=== PATIENT | female | born 1965 | race Caucasian/White ===

== ENCOUNTER 2022-08-20 21:08 | Inpatient (IN) ==
[2022-08-20] MEDS ORDERED: hydrALAZINE HCL 20 MG/ML VIAL IV STA ×2 (21:31→23:21)
[2022-08-20] MEDS ORDERED: ONDANSETRON INJ 2 MG/ML 2 ML VIAL IV STA (21:46)
--- NOTE | 2022-08-20 21:46 | Emergency Department Note ---
History of Present Illness General Chief complaint: Hypertension Stated complaint: DIZZINESS, NAUSEA, BLOOD PRESSURE HIGH Time Seen by Provider: 08/20/22 21:22 History of Present Illness This 56-year-old female presents to the ER complaining of headache, dizziness, nausea chest discomfort and shortness of breath today his blood pressure was 230/90 at home. Patient states she feels weak and dizzy. No history of high blood pressure. She does not smoke. Legs are chronically swollen. She is noncompliant with her Lasix. Patient denies fever, chills, localized weakness, cough, congestion, abdominal pain. Home Medications Medication Instructions Recorded Confirmed Type albuterol sulfate 2.5 mg/3 mL 2.5 mg continuous nebulization Q4 08/20/22 08/20/22 History (0.083 %) solution for nebulization PRN Shortness Of Breath Or Wheezing albuterol sulfate 90 mcg/actuation 2 puff inhalation Q4 PRN 08/20/22 08/20/22 History aerosol inhaler cough,SOB,wheezing budesonide-formoterol HFA 160 2 puff inhalation BID PRN 08/20/22 08/20/22 History mcg-4.5 mcg/actuation aerosol Shortness Of Breath inhaler (Symbicort) cyclobenzaprine 10 mg tablet 10 mg PO HS 08/20/22 08/21/22 History fluticasone propionate 50 2 spray intranasal DAILY PRN 08/20/22 08/20/22 History mcg/actuation nasal Congestion spray,suspension furosemide 20 mg tablet 20 mg PO DAILY 08/20/22 08/20/22 History hydrocodone-homatropine 5 mg-1.5 5 - 10 ml PO HS PRN Cough 08/20/22 08/20/22 History mg/5 mL oral syrup ipratropium 20 mcg-albuterol 100 1 puff inhalation QID 08/20/22 08/21/22 History mcg/actuation mist for inhalation (Combivent Respimat) meclizine 25 mg tablet 25 mg PO TID PRN Dizziness 08/20/22 08/20/22 History omeprazole 20 mg capsule,delayed 20 mg PO DAILYBB 08/20/22 08/21/22 History release potassium chloride 10 mEq 10 meq PO DAILY 08/20/22 08/21/22 History capsule,extended release promethazine 25 mg tablet 25 mg PO Q4 PRN Nausea 08/20/22 08/20/22 History montelukast 10 mg tablet 10 mg PO HS 08/21/22 08/21/22 History ondansetron HCl 4 mg tablet 4 mg PO Q8H PRN Nausea 08/21/22 08/21/22 History Allergies Allergy/AdvReac Type Severity Reaction Status Date / Time clarithromycin Allergy Severe hives and Verified 08/21/22 00:32 extreme vomiting doxycycline Allergy Severe swelling Verified 08/21/22 00:32 and thrush Penicillins Allergy Unknown hives,swell Verified 08/21/22 00:32 ing ampicillin Allergy VOMIT, RASH Verified 08/21/22 00:30 aspirin AdvReac SENSITIVITY-GI Verified 08/21/22 00:30 UPSET, NOSEBLEED Past Med/Surg History Medical History (Updated 08/21/22 @ 01:39 by Cam Olivares DO) Asthma GERD (gastroesophageal reflux disease) Lymphedema BERNABE (obstructive sleep apnea) Vertigo Social History Smoking Status: Never smoker Preferred Language: Maori Feels Safe at Home: Yes Review of Systems A total of 10 systems reviewed and were otherwise negative Physical Exam Vital Signs Vital Signs - 24 hr 08/20/22 21:12 08/20/22 23:03 08/20/22 22:49 Temperature 36.3 C L Temperature Source Temporal Artery Scan Pulse Rate 74 Pulse Rate [Apical] 80 Pulse Rate from SpO2 Sensor Respiratory Rate 20 18 Respiratory Effort / Characteristics Non-Labored Spontaneous Respiratory Depth Normal Blood Pressure 202/113 H 168/77 H Blood Pressure [Left Arm] 181/86 H Blood Pressure Mean 142 107 Blood Pressure Mean [Left Arm] 117 Pulse Oximetry 100 100 Oxygen Delivery Method Room Air Room Air Sepsis Recent Fever Within 48 Hours No Sepsis New/Unexplained Change in Mental Status No Sepsis Action Taken by Nursing No Action Required 08/20/22 23:03 08/20/22 23:24 08/20/22 23:40 Temperature Temperature Source Pulse Rate 84 85 76 Pulse Rate [Apical] Pulse Rate from SpO2 Sensor 84 Respiratory Rate 18 18 18 Respiratory Effort / Characteristics Respiratory Depth Blood Pressure 181/86 H 159/80 H 158/82 H Blood Pressure [Left Arm] Blood Pressure Mean 117 106 107 Blood Pressure Mean [Left Arm] Pulse Oximetry 100 100 100 Oxygen Delivery Method Sepsis Recent Fever Within 48 Hours Sepsis New/Unexplained Change in Mental Status Sepsis Action Taken by Nursing 08/21/22 00:00 Temperature Temperature Source Pulse Rate 81 Pulse Rate [Apical] Pulse Rate from SpO2 Sensor Respiratory Rate 18 Respiratory Effort / Characteristics Respiratory Depth Blood Pressure 169/95 H Blood Pressure [Left Arm] Blood Pressure Mean 119 Blood Pressure Mean [Left Arm] Pulse Oximetry 100 Oxygen Delivery Method Sepsis Recent Fever Within 48 Hours Sepsis New/Unexplained Change in Mental Status Sepsis Action Taken by Nursing VITALS: Vitals are noted on the nurse's note and reviewed by myself. Vital signs hypertensive. GENERAL: Pleasant female, in no acute distress, nondiaphoretic, well-developed well-nourished. SKIN: The skin was without rashes, erythema, edema, or bruising. There is no tenting of the skin. Capillary reflex less than 2 seconds. HEAD: Normocephalic atraumatic. EARS: External auditory canals clear, tympanic membranes pearly victoria without erythema or effusion bilaterally. EYES: Pupils equal round and reactive to light and accommodation. Conjunctivae without injection, sclerae without icterus. Extraocular movements intact. NOSE: Patent, turbinates without inflammation or discharge. MOUTH: Mucous membranes moist. Pharynx without erythema or exudate. Uvula midline. Airway patent. Tongue does not deviate. NECK: Supple without nuchal rigidity. No lymphadenopathy. No thyromegaly. Cervical spine is nontender. No JVD. HEART: Regular rate and rhythm LUNGS: Clear to auscultation bilaterally without wheezes, rales or rhonchi. No retractions or accessory muscle use. ABDOMEN: Positive bowel sounds x 4. Normal tympanic percussion. Soft, no ntender, without masses or organomegaly. Uribe sign negative. No guarding or rebound tenderness. No CVA tenderness MUSCULOSKELETAL: No muscle atrophy, erythema, or edema noted. NEURO: Patient was alert and oriented to person place and time. Normal sensation to light and sharp touch. Cranial nerves II through XII grossly intact. No pronator drift. Cerebellar exam intact. No focal neurological deficits. Course Administered Medications Discontinued Medications Hydralazine HCl (Hydralazine Hcl 20 Mg/Ml Vial) 10 mg IV NOW STA Stop: 08/20/22 21:32 Last Admin: 08/20/22 22:24 Dose: 10 mg Documented By: ML Hydralazine HCl (Hydralazine Hcl 20 Mg/Ml Vial) 10 mg IV NOW STA Stop: 08/20/22 23:22 Last Admin: 08/20/22 23:46 Dose: Not Given Documented By: ANDER Ioversol (Optiray 320 500ml) 109 ml IV ONCE ONE Stop: 08/20/22 22:35 Last Admin: 08/20/22 22:35 Dose: 109 ml Documented By: DERICK Ondansetron HCl (Ondansetron Inj 2 Mg/Ml 2 Ml Vial) 4 mg IV NOW STA Stop: 08/20/22 21:47 Last Admin: 08/20/22 22:23 Dose: 4 mg Documented By: ANTONINO Medical Decision Making Medical Records Attestation: I reviewed the patient's medical records. Home Medications Current Medication List: was personally reviewed by me Laboratory Data Attestation: I reviewed the patient's lab results. 08/20/22 22:11 08/20/22 22:11 Lab Results 08/20/22 08/20/22 08/20/22 Range/Units 22:11 22:11 22:11 WBC 8.52 (4.8-10.8) K/ul RBC 4.95 (4.20-5.40) M/uL Hgb 14.0 (12.0-16.0) g/dl Hct 43.5 (37.0-47.0) % MCV 87.9 (80.0-100.0) fL MCH 28.3 (25.0-34.0) pg MCHC 32.2 (32.0-36.0) g/dL RDW Std Deviation 44.4 (36.4-46.3) fL RDW Coeff of Jessie 13.7 (11.5-14.5) % Plt Count 285 (130-400) K/uL MPV 9.9 (9.4-12.4) fL Immature Gran % (Auto) 0.5 % Neut % (Auto) 70.4 % Lymph % (Auto) 16.3 % Traill % (Auto) 7.3 % Eos % (Auto) 4.9 % Baso % (Auto) 0.6 % Neut # (Auto) 6.00 (1.40-6.50) K/uL Lymph # (Auto) 1.39 (1.2-3.4) K/uL Traill # (Auto) 0.62 H (0.11-0.59) K/uL Eos # (Auto) 0.42 (0-0.50) K/uL Baso # (Auto) 0.05 (0-0.2) K/uL Immature Gran # (Auto) 0.04 (0.01-0.20) K/uL PT 10.6 (9.0-12.0) Seconds INR 1.0 (0.9-1.1) APTT 27.2 (21.0-31.0) Seconds PTT Ratio 1.0 Sodium 141 (136-145) mmol/L Potassium 3.8 (3.5-5.1) mmol/L Chloride 106 (98-107) mmol/L Carbon Dioxide 27 (21-32) mmol/L Anion Gap 8 (3-11) BUN 23 (6-23) mg/dl Creatinine 0.83 (0.6-1.2) mg/dl Est Cr Clr Drug Dosing 79.8 ml/min Est GFR ( Amer) 92.7 ml/min Est GFR (Non-Af Amer) 79.9 ml/min BUN/Creatinine Ratio 27.7 H (10-20) Glucose 96 (70-99(Fasting)) mg/dl Calcium 10.1 (8.6-10.3) mg/dl Magnesium 2.2 (1.7-2.4) mg/dl Total Bilirubin 0.7 (0.2-1.0) mg/dl AST 22 (13-39) U/L ALT 26 (7-52) U/L Alkaline Phosphatase 94 (34-104) U/L Troponin I High Sens 4.5 (0-14) pg/ml Total Protein 7.7 (6.0-8.3) gm/dl Albumin 4.8 (3.4-5.0) gm/dl Globulin 2.9 (2.5-4.0) gm/dl Albumin/Globulin Ratio 1.7 (0.9-2) HCG, Quant mIU/ml SARS-CoV-2, RNA, NAAT (NEGATIVE) 08/20/22 08/20/22 08/21/22 Range/Units 22:11 23:12 00:30 WBC (4.8-10.8) K/ul RBC (4.20-5.40) M/uL Hgb (12.0-16.0) g/dl Hct (37.0-47.0) % MCV (80.0-100.0) fL MCH (25.0-34.0) pg MCHC (32.0-36.0) g/dL RDW Std Deviation (36.4-46.3) fL RDW Coeff of Jessie (11.5-14.5) % Plt Count (130-400) K/uL MPV (9.4-12.4) fL Immature Gran % (Auto) % Neut % (Auto) % Lymph % (Auto) % Traill % (Auto) % Eos % (Auto) % Baso % (Auto) % Neut # (Auto) (1.40-6.50) K/uL Lymph # (Auto) (1.2-3.4) K/uL Traill # (Auto) (0.11-0.59) K/uL Eos # (Auto) (0-0.50) K/uL Baso # (Auto) (0-0.2) K/uL Immature Gran # (Auto) (0.01-0.20) K/uL PT (9.0-12.0) Seconds INR (0.9-1.1) APTT (21.0-31.0) Seconds PTT Ratio Sodium (136-145) mmol/L Potassium (3.5-5.1) mmol/L Chloride (98-107) mmol/L Carbon Dioxide (21-32) mmol/L Anion Gap (3-11) BUN (6-23) mg/dl Creatinine (0.6-1.2) mg/dl Est Cr Clr Drug Dosing ml/min Est GFR ( Amer) ml/min Est GFR (Non-Af Amer) ml/min BUN/Creatinine Ratio (10-20) Glucose (70-99(Fasting)) mg/dl Calcium (8.6-10.3) mg/dl Magnesium (1.7-2.4) mg/dl Total Bilirubin (0.2-1.0) mg/dl AST (13-39) U/L ALT (7-52) U/L Alkaline Phosphatase (34-104) U/L Troponin I High Sens 5.9 (0-14) pg/ml Total Protein (6.0-8.3) gm/dl Albumin (3.4-5.0) gm/dl Globulin (2.5-4.0) gm/dl Albumin/Globulin Ratio (0.9-2) HCG, Quant 1 mIU/ml SARS-CoV-2, RNA, NAAT NEGATIVE (NEGATIVE) Imaging Data Attestation: I personally reviewed and interpreted this imaging study as follows: Radiologist's Impression: Chest CTA 08/20/22 21:31 Exam(s): CTA CHEST IV Amt: 109 ml optiray 320 EXAM: CT Angiography Chest With Intravenous Contrast CLINICAL HISTORY: Reason for exam: PE, cp, htn uncontrolled, leg swelling. TECHNIQUE: Axial computed tomographic angiography images of the chest with intravenous contrast. CTDI is 23.21 mGy and DLP is 1256.3 mGy-cm. Automated exposure control was utilized for the study. A dose lowering technique was utilized adhering to the principles of ALARA. MIP reconstructed images were created and reviewed. COMPARISON: No relevant prior studies available. FINDINGS: Pulmonary arteries: Unremarkable. No pulmonary embolism. Aorta: No acute findings. No thoracic aortic aneurysm. Lungs: Unremarkable. No mass. No consolidation. Pleural space: Unremarkable. No significant effusion. No pneumothorax. Heart: Unremarkable. No cardiomegaly. No significant pericardial effusion. No evidence of RV dysfunction. Bones/joints: No acute fracture. No dislocation. Soft tissues: Unremarkable. Lymph nodes: Unremarkable. No enlarged lymph nodes. IMPRESSION: Normal chest CTA. No pulmonary embolism. Electronically signed by: Lorne Whitney MD 08/20/22 23:[address] 08/20/22 21:31 Exam(s): CT HEAD Without Contrast EXAM: CT Head Without Intravenous Contrast CLINICAL HISTORY: Reason for exam: neuro deficit, acute stroke suspected, htn. TECHNIQUE: Axial computed tomography images of the head/brain without intravenous contrast. CTDI is 36.71 mGy and DLP is 537.48 mGy-cm. Automated exposure control was utilized for the study. A dose lowering technique was utilized adhering to the principles of ALARA. COMPARISON: No relevant prior studies available. FINDINGS: No acute intracranial hemorrhage. No midline shift or mass effect. The [place]-white matter differentiation is maintained throughout. The ventricles and sulci are commensurate with age. The visualized orbits appear grossly unremarkable. The calvarium is intact. The visualized paranasal sinuses and mastoid air cells are grossly clear. IMPRESSION: No acute intracranial hemorrhage, midline shift, or mass effect. Electronically signed by: Lorne Whitney MD 08/20/22 23:12 PM Head CTA 08/20/22 21:31 Exam(s): CTA HEAD With Contrast IV Amt: 109 ml optiray 320 EXAM: CT Angiography Head With Intravenous Contrast CLINICAL HISTORY: Reason for exam: neuro deficit, acute stroke suspected, htn. TECHNIQUE: Axial computed tomographic angiography images of the head with intravenous contrast. CTDI is 36.71 mGy and DLP is 537.48 mGy-cm. Automated exposure control was utilized for the study. A dose lowering technique was utilized adhering to the principles of ALARA. MIP reconstructed images were created and reviewed. CONTRAST: Patient received 109 ml optiray 320 of IV contrast COMPARISON: No relevant prior studies available. FINDINGS: Right internal carotid artery: No acute findings. Intracranial segment is patent with no significant stenosis. No aneurysm. Right anterior cerebral artery: Unremarkable. No occlusion or significant stenosis. No aneurysm. Right middle cerebral artery: Unremarkable. No occlusion or significant stenosis. No aneurysm. Right posterior cerebral artery: Unremarkable. No occlusion or significant stenosis. No aneurysm. Left internal carotid artery: No acute findings. Intracranial segment is patent with no significant stenosis. No aneurysm. Left anterior cerebral artery: Unremarkable. No occlusion or significant stenosis. No aneurysm. Left middle cerebral artery: Unremarkable. No occlusion or significant stenosis. No aneurysm. Left posterior cerebral artery: Unremarkable. No occlusion or significant stenosis. No aneurysm. IMPRESSION: No large vessel occlusion. Electronically signed by: Lorne Whitney MD 08/20/22 23:21 PM Neck CTA 08/20/22 21:31 Exam(s): CTA NECK With Contrast IV Amt: 109 ml optiray 320 EXAM: CT Angiography Neck With Intravenous Contrast CLINICAL HISTORY: Reason for exam: neuro deficit, acute stroke suspected, htn. TECHNIQUE: Routine carotid CT angiography protocol was performed with intravenous contrast. NASCET criteria using the distal ICAs for comparison were used for evaluation of stenoses. CTDI is 23.21 mGy and DLP is 1256.3 mGy-cm. Automated exposure control was utilized for the study. A dose lowering technique was utilized adhering to the principles of ALARA. MIP reconstructed images were created and reviewed. CONTRAST: Patient received 109 ml optiray 320 of IV contrast COMPARISON: None. FINDINGS: VASCULATURE: Right common carotid artery: Unremarkable. No occlusion or significant stenosis. No dissection. Right internal carotid artery: Unremarkable. Extracranial segment is patent with no occlusion or significant stenosis. No dissection. Right external carotid artery: Unremarkable. No occlusion. Right vertebral artery: Unremarkable. No occlusion or significant stenosis. No dissection. Left common carotid artery: Unremarkable. No occlusion or significant stenosis. No dissection. Left internal carotid artery: Unremarkable. Extracranial segment is patent with no occlusion or significant stenosis. No dissection. Left external carotid artery: Unremarkable. No occlusion. Left vertebral artery: Unremarkable. No occlusion or significant stenosis. No dissection. IMPRESSION: No large vessel occlusion. Electronically signed by: Lorne Whitney MD 08/20/22 23:23 PM [facility] Narrative Prior records/ancillary studies reviewed and summarized above. Nursing notes reviewed. Additional history obtained from family. The patient's history was concerning for uncontrolled blood pressure, chest pain, headache, dizziness and nausea. Differential diagnosis: Etiologies such as metabolic, infection, hypo/hyperglycemia, electrolyte abnormalities, cardiac sources, intracerebral event, toxicologic, neurologic, as well as others were entertained. Physical examination: As above. ER treatment provided: IV Lock An order was placed for continuous cardiac monitoring. The monitor shows a rate of 60-100 with a sinus rhythm per my interpretation. Hydralazine and Zofran were ordered On reassessment the patient felt better. Diagnostics interpretation by me: ECG: Ordered for chest pain EKG: Normal sinus, normal intervals, no acute ST-T wave changes. Impression normal sinus rhythm independently interpreted by myself I think arrhythmia is unlikely. EKG shows normal sinus rhythm with no interval abnormalities such as QT prolongation or WPW. There are no findings to suggest Brugada syndrome. Cardiac monitoring in the emergency department reveals no tachycardic or bradycardic dysrhythmia. Hypertrophic cardiomyopathy was considered but there are no clear historical elements pointing toward this. EKG is not suggestive. The QRS voltage is not extremely large and there are no suggestive Q waves. The labs Independently Interpreted by myself revealed no worrisome leukocytosis, negative troponin Imaging studies: Chest x-ray with no acute consolidation, pneumothorax or free air per my independent interpretation CTs of the head CTAs of the head neck and chest were read by radiology and reviewed by myself with no acute abnormalities noted. HEART SCORE: Hx: high/mod/low suspicion: 0 ECG: ST depression/nonspecific changes/normal: 0 Age: Greater than 65/45-64/less than 45: 1 Risk factors: (Hypertension, hyperlipidemia, diabetes, coronary disease, tobacco use, cocaine use): 1 Troponin: Greater than 2 times normal limits/1-2 times normal limits/normal: 0 Total: 2 Consultation: A consultation was placed with the hospitalist. The case was discussed and diagnostics were reviewed. The patient was evaluated in the ER for further treatment. Exam and history seem consistent with uncontrolled high blood pressure with chest pain headache and dizziness. Patient had extensive work-up with no acute findings noted. She is given a few rounds of blood pressure medicine the blood pressure came down a little bit. She was neurovascular neurologically intact. She agrees to treatment plan of admission. Case was discussed with the admitting team. Hospitalist will come down for the admission. By the evaluation outlined above emergent etiologies such as infection, electrolyte abnormalities, intracerebral event, toxologic, neurologic, abnormalities blood glucose, meta bolic, as well as others were deemed relatively unlikely. The pt informed about the findings as listed above. All questions were answered and pleased with the treatment. The chart was completed utilizing [employer] Speech voice recognition software. Grammatical errors, random word insertions, pronoun errors, and incomplete sentences are an occassional consequence of this system due to software limitations, ambient noise, and hardware issues. Any formal questions or concerns about the content, text, or information contained within the body of this dictation should be directly addressed to the physician assistant clinical director for clarification. Impression & Plan Chest pain, High blood pressure, Headache, Dizziness Discharge Plan Visit Data Chief Complaint: Hypertension Stated Complaint: DIZZINESS, NAUSEA, BLOOD PRESSURE HIGH ED Provider: Sarah Patel ED Midlevel Provider: Lorri Diallo Discharge Problem: Chest pain, High blood pressure, Headache, Dizziness Patient Disposition: Being Evaluated by Hospitalist Condition: Good Forms Stand Alone Forms: My What the Trend Prescriptions Prescriptions: No Action albuterol sulfate 2.5 mg /3 mL (0.083 %) solution for nebulization 2.5 mg continuous nebulization Q4 PRN (Reason: Shortness Of Breath Or Wheezing) omeprazole 20 mg capsule,delayed release(DR/EC) 20 mg PO DAILYBB albuterol sulfate 90 mcg/actuation HFA aerosol inhaler 2 puff INHALATION Q4 PRN (Reason: cough,SOB,wheezing) cyclobenzaprine 10 mg tablet 10 mg PO HS Rx Instructions: ordered tid prn but takes routinely every night fluticasone propionate 50 mcg/actuation spray,suspension 2 spray INTRANASAL DAILY PRN (Reason: Congestion) potassium chloride 10 mEq capsule, extended release 10 meq PO DAILY meclizine 25 mg tablet 25 mg PO TID PRN (Reason: Dizziness) furosemide 20 mg tablet 20 mg PO DAILY budesonide-formoterol [Symbicort] 160-4.5 mcg/actuation HFA aerosol inhaler 2 puff INHALATION BID PRN (Reason: Shortness Of Breath) Combivent Respimat 20-100 mcg/actuation mist 1 puff INHALATION QID promethazine 25 mg tablet 25 mg PO Q4 PRN (Reason: Nausea) hydrocodone-homatropine 5-1.5 mg/5 mL syrup 5 - 10 ml PO HS PRN (Reason: Cough) montelukast 10 mg Tablet 10 mg PO HS ondansetron HCl 4 mg Tablet 4 mg PO Q8H PRN (Reason: Nausea) Referrals Referrals: PCP,NO [Physician] - Chest pain Qualifiers: Chest pain type: unspecified Qualified Code(s): R07.9 - Chest pain, unspecified
[2022-08-20] MEDS ORDERED: OPTIRAY 320 500ml IV ONE (22:34)
[2022-08-20 22:40] LABS: Basophils # (auto) 0.05 K/uL (0-0.2); Basophils % (auto) 0.6 %; Eosinophils # (auto) 0.42 K/uL (0-0.50); Eosinophils % (auto) 4.9 %; Hematocrit (blood only) 43.5 % (37.0-47.0); Immature Granulocytes # (auto) 0.04 K/uL (0.01-0.20); Immature Granulocytes % (auto) 0.5 %; Lymphocytes # (auto) 1.39 K/uL (1.2-3.4); Lymphocytes % (auto) 16.3 %; Mean Corpuscular Hemoglobin 28.3 pg (25.0-34.0); Mean Corpuscular Hgb Conc 32.2 g/dL (32.0-36.0); Mean Corpuscular Volume 87.9 fL (80.0-100.0); Mean Platelet Volume 9.9 fL (9.4-12.4); Monocytes # (auto) 0.62 K/uL (0.11-0.59); Monocytes % (auto) 7.3 %; Neutrophils % (auto) 70.4 %; Platelet Count 285 K/uL (130-400); RDW Coefficient of Variation 13.7 % (11.5-14.5); RDW Standard Deviation 44.4 fL (36.4-46.3); Red Blood Count 4.95 M/uL (4.20-5.40); White Blood Count 8.52 K/ul (4.8-10.8)
[2022-08-20 22:56] LABS: Partial Thromboplastin Time 27.2 Seconds (21.0-31.0); Prothrombin Time 10.6 Seconds (9.0-12.0)
[2022-08-20 22:57] LABS: Albumin Globulin Ratio 1.7 (0.9-2); Albumin Level 4.8 gm/dl (3.4-5.0); BUN Creatinine Ratio 27.7 (10-20); Bilirubin,Total 0.7 mg/dl (0.2-1.0); Calcium 10.1 mg/dl (8.6-10.3); Creatinine Clr Calc Pharmacy 79.8 ml/min; Est GFR (African American) 92.7 ml/min; Est GFR (Non-African American) 79.9 ml/min; Globulin 2.9 gm/dl (2.5-4.0); Magnesium 2.2 mg/dl (1.7-2.4); Potassium 3.8 mmol/L (3.5-5.1); Total Protein 7.7 gm/dl (6.0-8.3)
[2022-08-20 23:04] LABS: Troponin I High Sensitivity 4.5 pg/ml (0-14)
--- NOTE | 2022-08-20 23:13 | CT Scan Report ---
Exam(s): CT HEAD Without Contrast EXAM: CT Head Without Intravenous Contrast CLINICAL HISTORY: Reason for exam: neuro deficit, acute stroke suspected, htn. TECHNIQUE: Axial computed tomography images of the head/brain without intravenous contrast. CTDI is 36.71 mGy and DLP is 537.48 mGy-cm. Automated exposure control was utilized for the study. A dose lowering technique was utilized adhering to the principles of ALARA. COMPARISON: No relevant prior studies available. FINDINGS: No acute intracranial hemorrhage. No midline shift or mass effect. The [place]-white matter differentiation is maintained throughout. The ventricles and sulci are commensurate with age. The visualized orbits appear grossly unremarkable. The calvarium is intact. The visualized paranasal sinuses and mastoid air cells are grossly clear. IMPRESSION: No acute intracranial hemorrhage, midline shift, or mass effect. Electronically signed by: Lorne Whitney MD 08/20/22 23:12 PM
--- NOTE | 2022-08-20 23:18 | CT Scan Report ---
Exam(s): CTA CHEST IV Amt: 109 ml optiray 320 EXAM: CT Angiography Chest With Intravenous Contrast CLINICAL HISTORY: Reason for exam: PE, cp, htn uncontrolled, leg swelling. TECHNIQUE: Axial computed tomographic angiography images of the chest with intravenous contrast. CTDI is 23.21 mGy and DLP is 1256.3 mGy-cm. Automated exposure control was utilized for the study. A dose lowering technique was utilized adhering to the principles of ALARA. MIP reconstructed images were created and reviewed. COMPARISON: No relevant prior studies available. FINDINGS: Pulmonary arteries: Unremarkable. No pulmonary embolism. Aorta: No acute findings. No thoracic aortic aneurysm. Lungs: Unremarkable. No mass. No consolidation. Pleural space: Unremarkable. No significant effusion. No pneumothorax. Heart: Unremarkable. No cardiomegaly. No significant pericardial effusion. No evidence of RV dysfunction. Bones/joints: No acute fracture. No dislocation. Soft tissues: Unremarkable. Lymph nodes: Unremarkable. No enlarged lymph nodes. IMPRESSION: Normal chest CTA. No pulmonary embolism. Electronically signed by: Lorne Whitney MD 08/20/22 23:17 PM
--- NOTE | 2022-08-20 23:22 | CT Scan Report ---
Exam(s): CTA HEAD With Contrast IV Amt: 109 ml optiray 320 EXAM: CT Angiography Head With Intravenous Contrast CLINICAL HISTORY: Reason for exam: neuro deficit, acute stroke suspected, htn. TECHNIQUE: Axial computed tomographic angiography images of the head with intravenous contrast. CTDI is 36.71 mGy and DLP is 537.48 mGy-cm. Automated exposure control was utilized for the study. A dose lowering technique was utilized adhering to the principles of ALARA. MIP reconstructed images were created and reviewed. CONTRAST: Patient received 109 ml optiray 320 of IV contrast COMPARISON: No relevant prior studies available. FINDINGS: Right internal carotid artery: No acute findings. Intracranial segment is patent with no significant stenosis. No aneurysm. Right anterior cerebral artery: Unremarkable. No occlusion or significant stenosis. No aneurysm. Right middle cerebral artery: Unremarkable. No occlusion or significant stenosis. No aneurysm. Right posterior cerebral artery: Unremarkable. No occlusion or significant stenosis. No aneurysm. Left internal carotid artery: No acute findings. Intracranial segment is patent with no significant stenosis. No aneurysm. Left anterior cerebral artery: Unremarkable. No occlusion or significant stenosis. No aneurysm. Left middle cerebral artery: Unremarkable. No occlusion or significant stenosis. No aneurysm. Left posterior cerebral artery: Unremarkable. No occlusion or significant stenosis. No aneurysm. IMPRESSION: No large vessel occlusion. Electronically signed by: Lorne Whitney MD 08/20/22 23:21 PM
--- NOTE | 2022-08-20 23:24 | CT Scan Report ---
Exam(s): CTA NECK With Contrast IV Amt: 109 ml optiray 320 EXAM: CT Angiography Neck With Intravenous Contrast CLINICAL HISTORY: Reason for exam: neuro deficit, acute stroke suspected, htn. TECHNIQUE: Routine carotid CT angiography protocol was performed with intravenous contrast. NASCET criteria using the distal ICAs for comparison were used for evaluation of stenoses. CTDI is 23.21 mGy and DLP is 1256.3 mGy-cm. Automated exposure control was utilized for the study. A dose lowering technique was utilized adhering to the principles of ALARA. MIP reconstructed images were created and reviewed. CONTRAST: Patient received 109 ml optiray 320 of IV contrast COMPARISON: None. FINDINGS: VASCULATURE: Right common carotid artery: Unremarkable. No occlusion or significant stenosis. No dissection. Right internal carotid artery: Unremarkable. Extracranial segment is patent with no occlusion or significant stenosis. No dissection. Right external carotid artery: Unremarkable. No occlusion. Right vertebral artery: Unremarkable. No occlusion or significant stenosis. No dissection. Left common carotid artery: Unremarkable. No occlusion or significant stenosis. No dissection. Left internal carotid artery: Unremarkable. Extracranial segment is patent with no occlusion or significant stenosis. No dissection. Left external carotid artery: Unremarkable. No occlusion. Left vertebral artery: Unremarkable. No occlusion or significant stenosis. No dissection. IMPRESSION: No large vessel occlusion. Electronically signed by: Lorne Whitney MD 08/20/22 23:23 PM
--- NOTE | 2022-08-21 01:36 | History & Physical Report ---
Date of Service August 21, 2022 Assessment & Plan (1) Hypertensive urgency: Plan: 56 yo female PMHx asthma, GERD, mild BERNABE, vertigo, mitral valve prolapse, and lymphedema presents with chest pressure. #Hypertensive urgency #Chest pain -1 wk chest pressure worse on exertion, sob, nausea, headache, dizziness. Home BP 230/138. No leukocytosis or electrolyte imbalances. Saturating 100 on RA. Afebrile. Likely underlying HTN with exacerbation 2/2 stress. Exacerbation of lymphedema could play a role since patient did stop taking her lasix for lymphedema this past week. Low suspicion for ACS. -CT head: negative -CTA head/neck: negative -initial troponin and 2hr repeat negative -EKG pending. No obvious abnormalities on tele. Cont. to monitor. -echo ordered. Consider stress test. -Received 10mg IV hydralazine x2 in ED with appropriate BP response. Cont. IV hydralazine prn for BP >180/>120. -will start losartan 25mg qam #Lymphedema, chronic -no h/o CHF, pt reports last echo was preformed prior to diagnosis of lymphedema. She stopped taking her home lasix this past week due to increased urinary frequency at work. -echo as above -will defer continuation of lasix to day team #Asthma -cont. combivent scheduled -albuterol and symbicort prn #GERD -cont. PPI DVT ppx: lovenox FEN/GI: HH Code Status: full Dispo: med tele, obs (2) Chest pain: (3) Lymphedema: (4) Asthma: (5) Vertigo: (6) EBRNABE (obstructive sleep apnea): Plan: Intolerant of CPAP (7) GERD (gastroesophageal reflux disease): History of Present Illness Chief Complaint: chest pain Primary Care Provider: Arely Cai PA-C 56 yo female PMHx asthma, GERD, mild BERNABE, vertigo, mitral valve prolapse, and lymphedema presents with chest pressure. For the past week, she has had dizziness, headache, nausea, fatigue, chest pressure worse on exertion, and sob. Symptoms were the worst today prompting her to check her BP at home which was found to be 230/138. Denies fever, vomiting, abd pain, constipation, diarrhea, dysuria. She states she has had increased stress with moving and at work. Denies tobacco, alcohol, recreational drug, caffeine use. Limited salt diet. Has been working on losing weight. She did try taking her home meclizine which did not help. She is chronically lasix for lymphedema but stopped taking it a few days ago because she didn't want to keep urinating at work. She states her last echo was a few years back, prior to her diagnosis of lymphedema. Of note, due to mold inhalation she has also been on and off retirement steroids/abx over the past year. Last course of steroids was last month. Allergies Allergy/AdvReac Type Severity Reaction Status Date / Time clarithromycin Allergy Severe hives and Verified 08/21/22 00:32 extreme vomiting doxycycline Allergy Severe swelling Verified 08/21/22 00:32 and thrush Penicillins Allergy Unknown hives,swell Verified 08/21/22 00:32 ing ampicillin Allergy VOMIT, RASH Verified 08/21/22 00:30 aspirin AdvReac SENSITIVITY-GI Verified 08/21/22 00:30 UPSET, NOSEBLEED Home Medications Medication Instructions Recorded Confirmed Type albuterol sulfate 2.5 mg/3 mL 2.5 mg continuous nebulization Q4 08/20/22 08/20/22 History (0.083 %) solution for nebulization PRN Shortness Of Breath Or Wheezing albuterol sulfate 90 mcg/actuation 2 puff inhalation Q4 PRN 08/20/22 08/20/22 History aerosol inhaler cough,SOB,wheezing budesonide-formoterol HFA 160 2 puff inhalation BID PRN 08/20/22 08/20/22 History mcg-4.5 mcg/actuation aerosol Shortness Of Breath inhaler (Symbicort) cyclobenzaprine 10 mg tablet 10 mg PO HS 08/20/22 08/21/22 History fluticasone propionate 50 2 spray intranasal DAILY PRN 08/20/22 08/20/22 History mcg/actuation nasal Congestion spray,suspension furosemide 20 mg tablet 20 mg PO DAILY 08/20/22 08/20/22 History hydrocodone-homatropine 5 mg-1.5 5 - 10 ml PO HS PRN Cough 08/20/22 08/20/22 History mg/5 mL oral syrup ipratropium 20 mcg-albuterol 100 1 puff inhalation QID 08/20/22 08/21/22 History mcg/actuation mist for inhalation (Combivent Respimat) meclizine 25 mg tablet 25 mg PO TID PRN Dizziness 08/20/22 08/20/22 History omeprazole 20 mg capsule,delayed 20 mg PO DAILYBB 08/20/22 08/21/22 History release potassium chloride 10 mEq 10 meq PO DAILY 08/20/22 08/21/22 History capsule,extended release promethazine 25 mg tablet 25 mg PO Q4 PRN Nausea 08/20/22 08/20/22 History montelukast 10 mg tablet 10 mg PO HS 08/21/22 08/21/22 History ondansetron HCl 4 mg tablet 4 mg PO Q8H PRN Nausea 08/21/22 08/21/22 History Past Med/Surg History Medical History Asthma GERD (gastroesophageal reflux disease) Lymphedema BERNABE (obstructive sleep apnea) Vertigo Family History (Updated 08/21/22 @ 03:06 by Ghada Abreu DO) Other Hypertension Social History Smoking Status: Never smoker Hx Alcohol Use: No Hx Substance Use: No Preferred Language: Arabic Communication Ability: Effective Game Preserve Manager Required: No Beliefs That Will Affect Care: None Current Living Situation: Significant Other Other Information That Helps Us Care for You: No Feels Safe at Home: Yes Safety Concerns: Feels Safe At This Time Assistive Devices: Brace/Splint/Immobilizer and Glasses Assistive Devices Comment: glasses Review of Systems Review of Systems: All systems reviewed & are unremarkable except as noted in HPI & below Physical Exam Physical Exam: Constitutional: in no acute distress, pleasant, intact memory. AOx3. Vitals as above. Obese. HEENT: No scleral injection or discharge. Moist mucous membranes. Clear oropharynx. Neck: Supple without lymphadenopathy or thyromegaly. Trachea midline. Lungs: Clear to auscultation bilaterally with good effort. Cardiac: Regular rate and rhythm.No murmurs. 1+ LE pitting and nonpitting gerard ma. 2+ distal peripheral pulses. Abdomen: Bowel sounds present. Soft, nontender, and nondistended.No guarding. No hepatosplenomegaly. MSK: No cyanosis or clubbing. Extremities motor strength 5/5. Skin: No rashes, warm, dry. Neurologic: no focal deficits. PERRL. Results & Data Results & Data Vital Signs (Past 12 Hours) Vital Signs Temp Pulse Pulse Resp BP BP Pulse Ox 08/21/22 00:00 81 18 169/95 H 100 08/20/22 23:40 76 18 158/82 H 100 08/20/22 23:24 85 18 159/80 H 100 08/20/22 23:03 84 18 181/86 H 100 08/20/22 22:49 168/77 H 08/20/22 23:03 80 18 181/86 H 100 08/20/22 21:12 36.3 C L 74 20 202/113 H 100 O2 Del Method 08/21/22 00:00 08/20/22 23:40 08/20/22 23:24 08/20/22 23:03 08/20/22 22:49 08/20/22 23:03 Room Air 08/20/22 21:12 Room Air Laboratory Results Laboratory Results WBC 8.52 K/ul (4.8-10.8) 08/20/22 22:11 RBC 4.95 M/uL (4.20-5.40) 08/20/22 22:11 Hgb 14.0 g/dl (12.0-16.0) 08/20/22 22:11 Hct 43.5 % (37.0-47.0) 08/20/22 22:11 MCV 87.9 fL (80.0-100.0) 08/20/22 22:11 MCH 28.3 pg (25.0-34.0) 08/20/22 22:11 MCHC 32.2 g/dL (32.0-36.0) 08/20/22 22:11 RDW Std Deviation 44.4 fL (36.4-46.3) 08/20/22 22:11 RDW Coeff of Jessie 13.7 % (11.5-14.5) 08/20/22 22:11 Plt Count 285 K/uL (130-400) 08/20/22 22:11 MPV 9.9 fL (9.4-12.4) 08/20/22 22:11 Immature Gran % (Auto) 0.5 % 08/20/22 22:11 Neut % (Auto) 70.4 % 08/20/22 22:11 Lymph % (Auto) 16.3 % 08/20/22 22:11 Gilchrist % (Auto) 7.3 % 08/20/22 22:11 Eos % (Auto) 4.9 % 08/20/22 22:11 Baso % (Auto) 0.6 % 08/20/22 22:11 Neut # (Auto) 6.00 K/uL (1.40-6.50) 08/20/22 22:11 Lymph # (Auto) 1.39 K/uL (1.2-3.4) 08/20/22 22:11 Gilchrist # (Auto) 0.62 K/uL (0.11-0.59) H 08/20/22 22:11 Eos # (Auto) 0.42 K/uL (0-0.50) 08/20/22 22:11 Baso # (Auto) 0.05 K/uL (0-0.2) 08/20/22 22:11 Immature Gran # (Auto) 0.04 K/uL (0.01-0.20) 08/20/22 22:11 PT 10.6 Seconds (9.0-12.0) 08/20/22 22:11 INR 1.0 (0.9-1.1) 08/20/22 22:11 APTT 27.2 Seconds (21.0-31.0) 08/20/22 22:11 PTT Ratio 1.0 08/20/22 22:11 Sodium 141 mmol/L (136-145) 08/20/22 22:11 Potassium 3.8 mmol/L (3.5-5.1) 08/20/22 22:11 Chloride 106 mmol/L (98-107) 08/20/22 22:11 Carbon Dioxide 27 mmol/L (21-32) 08/20/22 22:11 Anion Gap 8 (3-11) 08/20/22 22:11 BUN 23 mg/dl (6-23) 08/20/22 22:11 Creatinine 0.83 mg/dl (0.6-1.2) 08/20/22 22:11 Est Cr Clr Drug Dosing 79.8 ml/min 08/20/22 22:11 Est GFR ( Amer) 92.7 ml/min 08/20/22 22:11 Est GFR (Non-Af Amer) 79.9 ml/min 08/20/22 22:11 BUN/Creatinine Ratio 27.7 (10-20) H 08/20/22 22:11 Glucose 96 mg/dl (70-99(Fasting)) 08/20/22 22:11 Calcium 10.1 mg/dl (8.6-10.3) 08/20/22 22:11 Magnesium 2.2 mg/dl (1.7-2.4) 08/20/22 22:11 Total Bilirubin 0.7 mg/dl (0.2-1.0) 08/20/22 22:11 AST 22 U/L (13-39) 08/20/22 22:11 ALT 26 U/L (7-52) 08/20/22 22:11 Alkaline Phosphatase 94 U/L (34-104) 08/20/22 22:11 Troponin I High Sens 5.9 pg/ml (0-14) 08/21/22 00:30 Total Protein 7.7 gm/dl (6.0-8.3) 08/20/22 22:11 Albumin 4.8 gm/dl (3.4-5.0) 08/20/22 22:11 Globulin 2.9 gm/dl (2.5-4.0) 08/20/22 22:11 Albumin/Globulin Ratio 1.7 (0.9-2) 08/20/22 22:11 HCG, Quant 1 mIU/ml 08/20/22 22:11 SARS-CoV-2, RNA, NAAT NEGATIVE (NEGATIVE) 08/20/22 23:12 Impressions Chest CTA 08/20/22 21:31 Exam(s): CTA CHEST IV Amt: 109 ml optiray 320 EXAM: CT Angiography Chest With Intravenous Contrast CLINICAL HISTORY: Reason for exam: PE, cp, htn uncontrolled, leg swelling. TECHNIQUE: Axial computed tomographic angiography images of the chest with intravenous contrast. CTDI is 23.21 mGy and DLP is 1256.3 mGy-cm. Automated exposure control was utilized for the study. A dose lowering technique was utilized adhering to the principles of ALARA. MIP reconstructed images were created and reviewed. COMPARISON: No relevant prior studies available. FINDINGS: Pulmonary arteries: Unremarkable. No pulmonary embolism. Aorta: No acute findings. No thoracic aortic aneurysm. Lungs: Unremarkable. No mass. No consolidation. Pleural space: Unremarkable. No significant effusion. No pneumothorax. Heart: Unremarkable. No cardiomegaly. No significant pericardial effusion. No evidence of RV dysfunction. Bones/joints: No acute fracture. No dislocation. Soft tissues: Unremarkable. Lymph nodes: Unremarkable. No enlarged lymph nodes. IMPRESSION: Normal chest CTA. No pulmonary embolism. Electronically signed by: Lorne Whitney MD 08/20/22 23:[address] 08/20/22 21:31 Exam(s): CT HEAD Without Contrast EXAM: CT Head Without Intravenous Contrast CLINICAL HISTORY: Reason for exam: neuro deficit, acute stroke suspected, htn. TECHNIQUE: Axial computed tomography images of the head/brain without intravenous contrast. CTDI is 36.71 mGy and DLP is 537.48 mGy-cm. Automated exposure control was utilized for the study. A dose lowering technique was utilized adhering to the principles of ALARA. COMPARISON: No relevant prior studies available. FINDINGS: No acute intracranial hemorrhage. No midline shift or mass effect. The [place]-white matter differentiation is maintained throughout. The ventricles and sulci are commensurate with age. The visualized orbits appear grossly unremarkable. The calvarium is intact. The visualized paranasal sinuses and mastoid air cells are grossly clear. IMPRESSION: No acute intracranial hemorrhage, midline shift, or mass effect. Electronically signed by: Lorne Whitney MD 08/20/22 23:12 PM Head CTA 08/20/22 21:31 Exam(s): CTA HEAD With Contrast IV Amt: 109 ml optiray 320 EXAM: CT Angiography Head With Intravenous Contrast CLINICAL HISTORY: Reason for exam: neuro deficit, acute stroke suspected, htn. TECHNIQUE: Axial computed tomographic angiography images of the head with intravenous contrast. CTDI is 36.71 mGy and DLP is 537.48 mGy-cm. Automated exposure control was utilized for the study. A dose lowering technique was utilized adhering to the principles of ALARA. MIP reconstructed images were created and reviewed. CONTRAST: Patient received 109 ml optiray 320 of IV contrast COMPARISON: No relevant prior studies available. FINDINGS: Right internal carotid artery: No acute findings. Intracranial segment is patent with no significant stenosis. No aneurysm. Right anterior cerebral artery: Unremarkable. No occlusion or significant stenosis. No aneurysm. Right middle cerebral artery: Unremarkable. No occlusion or significant stenosis. No aneurysm. Right posterior cerebral artery: Unremarkable. No occlusion or significant stenosis. No aneurysm. Left internal carotid artery: No acute findings. Intracranial segment is patent with no significant stenosis. No aneurysm. Left anterior cerebral artery: Unremarkable. No occlusion or significant stenosis. No aneurysm. Left middle cerebral artery: Unremarkable. No occlusion or significant stenosis. No aneurysm. Left posterior cerebral artery: Unremarkable. No occlusion or significant stenosis. No aneurysm. IMPRESSION: No large vessel occlusion. Electronically signed by: Lorne Whitney MD 08/20/22 23:21 PM Neck CTA 08/20/22 21:31 Exam(s): CTA NECK With Contrast IV Amt: 109 ml optiray 320 EXAM: CT Angiography Neck With Intravenous Contrast CLINICAL HISTORY: Reason for exam: neuro deficit, acute stroke suspected, htn. TECHNIQUE: Routine carotid CT angiography protocol was performed with intravenous contrast. NASCET criteria using the distal ICAs for comparison were used for evaluation of stenoses. CTDI is 23.21 mGy and DLP is 1256.3 mGy-cm. Automated exposure control was utilized for the study. A dose lowering technique was utilized adhering to the principles of ALARA. MIP reconstructed images were created and reviewed. CONTRAST: Patient received 109 ml optiray 320 of IV contrast COMPARISON: None. FINDINGS: VASCULATURE: Right common carotid artery: Unremarkable. No occlusion or significant stenosis. No dissection. Right internal carotid artery: Unremarkable. Extracranial segment is patent with no occlusion or significant stenosis. No dissection. Right external carotid artery: Unremarkable. No occlusion. Right vertebral artery: Unremarkable. No occlusion or significant stenosis. No dissection. Left common carotid artery: Unremarkable. No occlusion or significant stenosis. No dissection. Left internal carotid artery: Unremarkable. Extracranial segment is patent with no occlusion or significant stenosis. No dissection. Left external carotid artery: Unremarkable. No occlusion. Left vertebral artery: Unremarkable. No occlusion or significant stenosis. No dissection. IMPRESSION: No large vessel occlusion. Electronically signed by: Lorne Whitney MD 08/20/22 23:23 PM Code Status & VTE Plan VTE Prophylaxis Plan VTE Prophylaxis will be ordered: Yes Supervising Physician Co-Signing Physician Notes Supervision Note: I personally saw and examined the patient. I verified all walker points and agree with PGY-2 Cam Olivares with the following exceptions and/or additions: Subjective: Physical exam: Vitals reviewed Gen: Alert and oriented, NAD HEENT: anicteric sclerae, EOMI CV: RRR no mgr nl S1S2 Pulm: CTAB no wcr Abd: +BS soft NT ND no masses Ext: no edema, 2+ DP pulses Skin: no rashes, warm/dry Neuro: No focal neurologic deficits Labs, Rads, and ECG reviewed Assessment and Plan: Hypertensive urgency: Family history of hypertension in multiple family members, and patient herself with a history of BERNABE intolerant of CPAP secondary to claustrophobia. Has also had reported weight gain over the last year in the setting of multiple asthma exacerbations treated with oral prednisone tapers. No renal dysfunction on admitting lab work. Urinalysis ordered to evaluate for proteinuria given edema and hypertension. Suspect that hypertension is predominant reason for patient's headache and chest discomfort, as the symptoms improved with improvement in her blood pressure. CT head, CTA head/neck, chest CTA negative for acute pathology. BP 180s at time of my interview, given dose of losartan and will start daily losartan 25 mg in the morning, with hydralazine as needed for SBP greater than 180. Did discuss importance of CPAP, perhaps even nasal option, given hypertension. Renal artery duplex ordered. Chest pain: With reports of chest pain, not exertional, some muscular skeletal involvement suspected due to tenderness to palpation of chest wall. Intake and 2-hour troponins both negative, low likelihood of ACS. Echocardiogram in the morning. Asthma: Continue home Symbicort, fluticasone, Combivent Respimat as needed Plan otherwise as described above Resident Activity Tracking Resident Involvement: Resident Care Provided Care Provided: Adult Hospital Medicine (2) Chest pain Chest pain type: unspecified Qualified Code(s): R07.9 - Chest pain, unspecified
[2022-08-21] MEDS ORDERED: FLUTICASONE PROPIONATE NA SPR 16 GM BTL PRN (02:16)
[2022-08-21] MEDS ORDERED: hydrALAZINE HCL 20 MG/ML VIAL IV PRN (02:16)
[2022-08-21] MEDS ORDERED: ALBUTEROL HFA 8 GM INHALER INH PRN (02:16)
[2022-08-21] MEDS ORDERED: FLUTICASONE/VILANTEROL 100/25MCG 14 PUFFS/INHALER INH PRN (02:41)
[2022-08-21] MEDS ORDERED: LOSARTAN POTASSIUM 25 MG TAB PO ONE (02:58)
--- NOTE | 2022-08-21 03:15 | Billing Data ---
Date of Service August 21, 2022 Coding Level of Care Code 97455 INT INP/OBS CARE
[2022-08-21] MEDS: ACETAMINOPHEN 325 MG TAB PO PRN (03:17)
[2022-08-21 03:37] LABS: Appearance Urine Clear (Clear); Bilirubin Urine Negative (Negative); Blood Urine Negative (Negative); Color Urine Yellow; Glucose Urine UA Negative (Negative); Ketones Urine Negative (Negative); Leukocyte Esterase Urine Negative (Negative); Nitrite Urine Negative (Negative); Protein Urine Negative (Negative); Specific Gravity Urine > 1.045 (1.000-1.030); Urobilinogen Urine Negative (Negative); pH Urine 6.5 (4.5-7.5)
[2022-08-21] MEDS: PANTOprazole 40 MG TAB PO SCH (05:29)
--- NOTE | 2022-08-21 07:42 | XRay Report ---
XR chest 1V portable CLINICAL HISTORY: Atypical chest pain. Hypertension. COMPARISON STUDY: Chest radiograph July 21, 2009. FINDINGS: Lung volumes are normal. Lungs are clear. There is no pneumothorax or pleural effusion. Mil d cardiomegaly. Mediastinal contours are normal. There is no evidence for pulmonary edema. IMPRESSION: No acute cardiopulmonary findings. ACT 112: Negative or not required by law. Electronically signed by: Daniel Croft M.D. 08/21/2022 7:40 AM
[2022-08-21] MEDS: Albuterol HFA 8 GM Inhaler (Combivent Respimat P&T Subs) INH SCH ×4 (07:56→19:13)
[2022-08-21] MEDS: Ipratropium HFA Inhaler (Combivent Respimat P&T Subs) INH SCH ×4 (07:56→19:13)
--- NOTE | 2022-08-21 08:30 | Electrocardiogram Report ---
Test Reason : Blood Pressure : / mmHG Vent. Rate : 061 BPM Atrial Rate : 061 BPM P-R Int : 180 ms QRS Dur : 086 ms QT Int : 450 ms P-R-T Axes : 068 -02 030 degrees QTc Int : 453 ms Poor data quality, interpretation may be adversely affected Normal sinus rhythm Normal ECG When compared with ECG of 22-JUL-2009 06:22, No significant change was found Confirmed by Saturnino Waters ([id number]) on 08/21/2022 8:30:30 AM Referred By: REFERRED SELF Confirmed By:Saturnino Waters
[2022-08-21 08:41] LABS: iSTAT Creatinine 0.8 mg/dl (0.6-1.3); iSTAT Hemoglobin 15.3 g/dl (12.0-16.0); iSTAT Ionized Calcium 1.2 mmol/l (1.12-1.32); iSTAT Potassium 3.7 mmol/L (3.3-5.0)
[2022-08-21] MEDS ORDERED: IPRATROPIUM BROMIDE/ALBUTEROL respimat INH INH SCH (09:00)
[2022-08-21] MEDS: ENOXAPARIN INJ 40 MG/0.4 ML SYR SQ SCH ×2 (10:12→22:05)
[2022-08-21] MEDS: LOSARTAN POTASSIUM 25 MG TAB PO SCH (10:13)
--- NOTE | 2022-08-21 10:29 | Ultrasound Report ---
US duplex renal artery CLINICAL HISTORY: Hypertension. COMPARISON STUDY: None. FINDINGS: The peak systolic velocity within the mid left renal artery is 116 cm/s and the mid right r enal artery is 70 cm/s. The right kidney measures 9.7 cm and the left kidney measures 9.6 cm. No hydr onephrosis. Bilateral renal veins are patent. Resistive indices of the bilateral renal arcuate arteri es are within normal limits measuring less than 0.75. IMPRESSION: No evidence for renal artery stenosis. ACT 112: Negative or not required by law. Electronically signed by: Noe Martel M.D. 08/21/2022 10:27 AM
--- NOTE | 2022-08-21 11:41 | XCELERA ---
[id number]
--- NOTE | 2022-08-21 13:46 | Hospitalist Progress Note ---
Date of Service August 21, 2022 Assessment & Plan (1) Hypertensive urgency: Plan: 56 yo female PMHx asthma, GERD, mild BERNABE, vertigo, mitral valve prolapse, and lymphedema presents with chest pressure. #Hypertensive urgency #Chest pain -1 wk chest pressure worse on exertion, sob, nausea, headache, dizziness. Home BP 230/138. No leukocytosis or electrolyte imbalances. Saturating 100 on RA. Afebrile. Likely underlying HTN with exacerbation 2/2 stress. Exacerbation of lymphedema could play a role since patient did stop taking her lasix for lymphedema this past week. -CT head: negative -CTA head/neck: negative -Troponin negative x2 -EKG negative -echo negative. We will do a stress test on Wednesday Blood pressure well controlled after starting losartan 25 mg every morning. We will continue this regimen #Lymphedema, chronic -no h/o CHF, pt reports last echo was preformed prior to diagnosis of lymphedema. She stopped taking her home lasix this past week due to increased urinary frequency at work. -echo negative Hold Lasix #Asthma -cont. combivent scheduled -albuterol and symbicort prn #GERD -cont. PPI DVT ppx: lovenox FEN/GI: HH Code Status: full Dispo: med tele (2) Chest pain: (3) Lymphedema: (4) Asthma: (5) Vertigo: (6) BERNABE (obstructive sleep apnea): Plan: Intolerant of CPAP (7) GERD (gastroesophageal reflux disease): Admission and Anticipated Discharge Date Admission Date: August 21, 2022 Subjective Patient feels better now. Chest pain is gone. No shortness of breath. Review of Systems Review of Systems: All systems reviewed & are unremarkable except as noted in Subjective Physical Exam Physical Exam: General: Awake, conversant Heart: S1, S2/regular rate and rhythm, no murmur rubs or gallops Lungs: Clear to auscultation bilaterally. Normal effort Abdomen: Soft/nontender/nondistended. No hepatosplenomegaly Extremities: No clubbing/cyanosis. No edema Behavior: Appropriate, cooperative Results & Data Results & Data Vital Signs (Past 12 Hours) Vital Signs Temp Pulse Pulse Pulse Resp BP Pulse Ox 08/21/22 11:16 83 16 100 08/21/22 11:02 36.5 C 80 18 120/75 100 08/21/22 09:23 08/21/22 09:09 78 08/21/22 07:58 83 18 98 08/21/22 07:42 36.6 C 66 18 119/74 96 08/21/22 05:28 84 121/73 08/21/22 04:00 36.9 C 101 H 18 115/76 95 08/21/22 03:24 95 H 08/21/22 02:23 36.6 C 77 18 180/94 H 100 O2 Del Method 08/21/22 11:16 Room Air 08/21/22 11:02 Room Air 08/21/22 09:23 Room Air 08/21/22 09:09 08/21/22 07:58 Room Air 08/21/22 07:42 Room Air 08/21/22 05:28 08/21/22 04:00 Room Air 08/21/22 03:24 08/21/22 02:23 Room Air PG Care Time/CCT Total # of Minutes Spent Total Time Spent with Patient: Total time spent is greater than 50% in coordination of care (as documented) at patient's floor/unit and/or counseling patient: Coding Level of Care Code None Diagnoses Hypertensive urgency I16.0 Chest pain R07.9 Chest pain type: unspecified Lymphedema I89.0 Asthma J45.909 Vertigo R42 BERNABE (obstructive sleep apnea) G47.33 GERD (gastroesophageal reflux disease) K21.9 (2) Chest pain Chest pain type: unspecified Qualified Code(s): R07.9 - Chest pain, unspecified
[2022-08-21] MEDS: MONTELUKAST SODIUM 10 MG TABLET PO SCH (22:05)
[2022-08-21] MEDS: CYCLOBENZAPRINE HCL 10 MG TAB PO SCH (22:05)
[2022-08-22] MEDS: PANTOprazole 40 MG TAB PO SCH (06:30)
[2022-08-22 06:49] LABS: Basophils # (auto) 0.04 K/uL (0-0.2); Basophils % (auto) 0.6 %; Eosinophils # (auto) 0.46 K/uL (0-0.50); Eosinophils % (auto) 6.6 %; Hematocrit (blood only) 40.8 % (37.0-47.0); Immature Granulocytes # (auto) 0.02 K/uL (0.01-0.20); Immature Granulocytes % (auto) 0.3 %; Lymphocytes # (auto) 1.31 K/uL (1.2-3.4); Lymphocytes % (auto) 18.9 %; Mean Corpuscular Hemoglobin 28.1 pg (25.0-34.0); Mean Corpuscular Hgb Conc 31.9 g/dL (32.0-36.0); Mean Corpuscular Volume 88.3 fL (80.0-100.0); Mean Platelet Volume 9.8 fL (9.4-12.4); Monocytes # (auto) 0.66 K/uL (0.11-0.59); Monocytes % (auto) 9.5 %; Neutrophils # (auto) 4.43 K/uL (1.40-6.50); Neutrophils % (auto) 64.1 %; Platelet Count 261 K/uL (130-400); RDW Standard Deviation 45.1 fL (36.4-46.3); Red Blood Count 4.62 M/uL (4.20-5.40); White Blood Count 6.92 K/ul (4.8-10.8)
[2022-08-22 06:51] LABS: Albumin Globulin Ratio 1.8 (0.9-2); Albumin Level 4.2 gm/dl (3.4-5.0); BUN Creatinine Ratio 31.9 (10-20); Bilirubin,Total 0.5 mg/dl (0.2-1.0); Calcium 8.7 mg/dl (8.6-10.3); Creatinine Clr Calc Pharmacy 72.1 ml/min; Est GFR (African American) 79.7 ml/min; Est GFR (Non-African American) 68.8 ml/min; Globulin 2.4 gm/dl (2.5-4.0); Potassium 3.8 mmol/L (3.5-5.1); Total Protein 6.6 gm/dl (6.0-8.3)
[2022-08-22] MEDS: Albuterol HFA 8 GM Inhaler (Combivent Respimat P&T Subs) INH SCH ×4 (07:18→18:48)
[2022-08-22] MEDS: Ipratropium HFA Inhaler (Combivent Respimat P&T Subs) INH SCH ×4 (07:19→18:47)
[2022-08-22] MEDS: ENOXAPARIN INJ 40 MG/0.4 ML SYR SQ SCH ×2 (08:05→20:25)
[2022-08-22] MEDS: LOSARTAN POTASSIUM 25 MG TAB PO SCH (08:05)
--- NOTE | 2022-08-22 12:14 | Hospitalist Progress Note ---
Date of Service August 22, 2022 Assessment & Plan (1) Hypertensive urgency: Plan: 56 yo female PMHx asthma, GERD, mild BERNABE, vertigo, mitral valve prolapse, and lymphedema presents with chest pressure. #Hypertensive urgency #Chest pain -1 wk chest pressure worse on exertion, sob, nausea, headache, dizziness. Home BP 230/138. No leukocytosis or electrolyte imbalances. Saturating 100 on RA. Afebrile. Likely underlying HTN with exacerbation 2/2 stress. Exacerbation of lymphedema could play a role since patient did stop taking her lasix for lymphedema this past week. -CT head: negative -CTA head/neck: negative -Troponin negative x2 -EKG negative -echo negative. We will do a stress test on Wednesday Blood pressure well controlled after starting losartan 25 mg every morning. We will continue this regimen #Lymphedema, chronic -no h/o CHF, pt reports last echo was preformed prior to diagnosis of lymphedema. She stopped taking her home lasix this past week due to increased urinary frequency at work. -echo negative Hold Lasix #Asthma -cont. combivent scheduled -albuterol and symbicort prn #GERD -cont. PPI DVT ppx: lovenox FEN/GI: HH Code Status: full Dispo: med tele (2) Chest pain: (3) Lymphedema: (4) Asthma: (5) Vertigo: (6) BERNABE (obstructive sleep apnea): Plan: Intolerant of CPAP (7) GERD (gastroesophageal reflux disease): Admission and Anticipated Discharge Date Admission Date: August 21, 2022 Subjective Patient feels well. Denies chest pain or shortness. Review of Systems Review of Systems: All systems reviewed & are unremarkable except as noted in Subjective Physical Exam Physical Exam: General: Awake, conversant Heart: S1, S2/regular rate and rhythm, no murmur rubs or gallops Lungs: Clear to auscultation bilaterally. Normal effort Abdomen: Soft/nontender/nondistended. No hepatosplenomegaly Extremities: No clubbing/cyanosis. No edema Behavior: Appropriate, cooperative Results & Data Results & Data Vital Signs (Past 12 Hours) Vital Signs Temp Pulse Pulse Resp BP Pulse Ox O2 Del Method 08/22/22 11:52 36.5 C 64 20 126/76 100 Room Air 08/22/22 11:14 88 20 99 Room Air 08/22/22 07:40 82 20 100 Room Air 08/22/22 09:41 57 L 08/22/22 07:48 36.7 C 66 16 159/79 H 100 Room Air 08/22/22 05:12 117/70 08/22/22 04:00 36.5 C 79 18 100/59 L 95 Room Air 08/22/22 01:23 70 PG Care Time/CCT Total # of Minutes Spent Total Time Spent with Patient: Total time spent is greater than 50% in coordination of care (as documented) at patient's floor/unit and/or counseling patient: Coding Level of Care Code 37267 SUB INP/OBS CARE 06/10MIN Diagnoses Hypertensive urgency I16.0 Chest pain R07.9 Chest pain type: unspecified Lymphedema I89.0 Asthma J45.909 Vertigo R42 BERNABE (obstructive sleep apnea) G47.33 GERD (gastroesophageal reflux disease) K21.9 (2) Chest pain Chest pain type: unspecified Qualified Code(s): R07.9 - Chest pain, unspecified
[2022-08-22] MEDS: MONTELUKAST SODIUM 10 MG TABLET PO SCH (20:25)
[2022-08-22] MEDS: CYCLOBENZAPRINE HCL 10 MG TAB PO SCH (20:25)
[2022-08-23] MEDS: ACETAMINOPHEN 325 MG TAB PO PRN (03:26)
[2022-08-23] MEDS: PANTOprazole 40 MG TAB PO SCH (05:44)
[2022-08-23] MEDS: Albuterol HFA 8 GM Inhaler (Combivent Respimat P&T Subs) INH SCH ×4 (07:06→19:40)
[2022-08-23] MEDS: Ipratropium HFA Inhaler (Combivent Respimat P&T Subs) INH SCH ×4 (07:06→19:40)
[2022-08-23] MEDS: ENOXAPARIN INJ 40 MG/0.4 ML SYR SQ SCH ×2 (08:34→20:15)
[2022-08-23] MEDS: LOSARTAN POTASSIUM 25 MG TAB PO SCH (08:34)
--- NOTE | 2022-08-23 12:57 | Hospitalist Progress Note ---
Date of Service August 23, 2022 Assessment & Plan (1) Hypertensive urgency: Plan: 56 yo female PMHx asthma, GERD, mild BERNABE, vertigo, mitral valve prolapse, and lymphedema presents with chest pressure. #Hypertensive urgency #Chest pain -1 wk chest pressure worse on exertion, sob, nausea, headache, dizziness. Home BP 230/138. No leukocytosis or electrolyte imbalances. Saturating 100 on RA. Afebrile. Likely underlying HTN with exacerbation 2/2 stress. Exacerbation of lymphedema could play a role since patient did stop taking her lasix for lymphedema this past week. -CT head: negative -CTA head/neck: negative -Troponin negative x2 -EKG negative -echo negative. Stress test tomorrow. N.p.o. postmidnight tonight Blood pressure well controlled after starting losartan 25 mg every morning. We will continue this regimen #Lymphedema, chronic -no h/o CHF, pt reports last echo was preformed prior to diagnosis of lymphedema. She stopped taking her home lasix this past week due to increased urinary frequency at work. -echo negative Hold Lasix #Asthma -cont. combivent scheduled -albuterol and symbicort prn #GERD -cont. PPI DVT ppx: lovenox FEN/GI: HH Code Status: full Dispo: Discharge tomorrow if stress test negative (2) Chest pain: (3) Lymphedema: (4) Asthma: (5) Vertigo: (6) BERNABE (obstructive sleep apnea): Plan: Intolerant of CPAP (7) GERD (gastroesophageal reflux disease): Admission and Anticipated Discharge Date Admission Date: August 23, 2022 Subjective Patient feels well. Denies chest pain or shortness of breath. Denies feeling dizzy. Review of Systems Review of Systems: All systems reviewed & are unremarkable except as noted in Subjective Physical Exam Physical Exam: General: Awake, conversant Heart: S1, S2/regular rate and rhythm, no murmur rubs or gallops Lungs: Clear to auscultation bilaterally. Normal effort Abdomen: Soft/nontender/nondistended. No hepatosplenomegaly Extremities: No clubbing/cyanosis. No edema Behavior: Appropriate, cooperative Results & Data Results & Data Vital Signs (Past 12 Hours) Vital Signs Temp Pulse Pulse Resp BP Pulse Ox O2 Del Method 08/23/22 11:44 36.5 C 57 L 16 131/74 96 Room Air 04/09/23 11:34 94 H 18 98 Room Air 08/23/22 07:46 91 H 20 98 Room Air 08/23/22 07:20 36.3 C L 63 19 118/64 97 Room Air 08/23/22 06:59 63 08/23/22 03:06 36.6 C 67 16 121/76 97 Room Air PG Care Time/CCT Total # of Minutes Spent Total Time Spent with Patient: Total time spent is greater than 50% in coordination of care (as documented) at patient's floor/unit and/or counseling patient: Coding Level of Care Code 14946 SUB INP/OBS CARE 06/10MIN Diagnoses Hypertensive urgency I16.0 Chest pain R07.9 Chest pain type: unspecified Lymphedema I89.0 Asthma J45.909 Vertigo R42 BERNABE (obstructive sleep apnea) G47.33 GERD (gastroesophageal reflux disease) K21.9 (2) Chest pain Chest pain type: unspecified Qualified Code(s): R07.9 - Chest pain, unspecified
[2022-08-23] MEDS: CYCLOBENZAPRINE HCL 10 MG TAB PO SCH (20:15)
[2022-08-23] MEDS: MONTELUKAST SODIUM 10 MG TABLET PO SCH (20:15)
[2022-08-24] MEDS: PANTOprazole 40 MG TAB PO SCH (05:47)
[2022-08-24] MEDS: Albuterol HFA 8 GM Inhaler (Combivent Respimat P&T Subs) INH SCH ×2 (07:23→11:00)
[2022-08-24] MEDS: Ipratropium HFA Inhaler (Combivent Respimat P&T Subs) INH SCH ×2 (07:23→11:01)
[2022-08-24] MEDS: ENOXAPARIN INJ 40 MG/0.4 ML SYR SQ SCH (08:06)
[2022-08-24] MEDS: LOSARTAN POTASSIUM 25 MG TAB PO SCH (08:06)
--- NOTE | 2022-08-24 10:59 | XCELERA ---
[id number]
--- NOTE | 2022-08-24 11:18 | Discharge Summary ---
Date of Service August 24, 2022 Admission HPI Per Admitting Provider 56 yo female PMHx asthma, GERD, mild BERNABE, vertigo, mitral valve prolapse, and lymphedema presents with chest pressure. For the past week, she has had dizziness, headache, nausea, fatigue, chest pressure worse on exertion, and sob. Symptoms were the worst today prompting her to check her BP at home which was found to be 230/138. Denies fever, vomiting, abd pain, constipation, diarrhea, dysuria. She states she has had increased stress with moving and at work. Denies tobacco, alcohol, recreational drug, caffeine use. Limited salt diet. Has been working on losing weight. She did try taking her home meclizine which did not help. She is chronically lasix for lymphedema but stopped taking it a few days ago because she didn't want to keep urinating at work. She states her last echo was a few years back, prior to her diagnosis of lymphedema. Of note, due to mold inhalation she has also been on and off jail steroids/abx over the past year. Last course of steroids was last month. Admission Exam Per Admitting Provider Constitutional: in no acute distress, pleasant, intact memory. AOx3. Vitals as above. Obese. HEENT: No scleral injection or discharge. Moist mucous membranes. Clear oropharynx. Neck: Supple without lymphadenopathy or thyromegaly. Trachea midline. Lungs: Clear to auscultation bilaterally with good effort. Cardiac: Regular rate and rhythm.No murmurs. 1+ LE pitting and nonpitting edema. 2+ distal peripheral pulses. Abdomen: Bowel sounds present. Soft, nontender, and nondistended.No guarding. No hepatosplenomegaly. MSK: No cyanosis or clubbing. Extremities motor strength 5/5. Skin: No rashes, warm, dry. Neurologic: no focal deficits. PERRL. Principal Diagnosis Hypertensive urgency. Atypical chest pain likely secondary to musculoskeletal issues versus hypertensive urgency. Cardiac etiology ruled out with a negative stress test Discharge Exam General: Awake, conversant Heart: S1, S2/regular rate and rhythm, no murmur rubs or gallops Lungs: Clear to auscultation bilaterally. Normal effort Abdomen: Soft/nontender/nondistended. No hepatosplenomegaly Extremities: No clubbing/cyanosis. No edema Behavior: Appropriate, cooperative Discharge Data Allergies Allergy/AdvReac Type Severity Reaction Status Date / Time clarithromycin Allergy Severe hives and Verified 08/21/22 00:32 extreme vomiting doxycycline Allergy Severe swelling Verified 08/21/22 00:32 and thrush Penicillins Allergy Unknown hives,swell Verified 08/21/22 00:32 ing ampicillin Allergy VOMIT, RASH Verified 08/21/22 00:30 aspirin AdvReac SENSITIVITY-GI Verified 08/21/22 00:30 UPSET, NOSEBLEED Consultations 08/20/22 23:39 ED Decision to Admit Stat Ordered Studies 08/20/22 21:31 CT angio chest PE protocol Stat CT angio head w con Stat CT angio neck with con Stat CT head/brain wo con Stat 08/21/22 03:12 US duplex renal artery Routine Hospital Course (1) Hypertensive urgency: 56 yo female PMHx asthma, GERD, mild BERNABE, vertigo, mitral valve prolapse, and lymphedema presents with chest pressure. #Hypertensive urgency #Chest pain -1 wk chest pressure worse on exertion, sob, nausea, headache, dizziness. Home BP 230/138. No leukocytosis or electrolyte imbalances. Saturating 100 on RA. Afebrile. Likely underlying HTN with exacerbation 2/2 stress. Exacerbation of lymphedema could play a role since patient did stop taking her lasix for lymphedema this past week. -CT head: negative -CTA head/neck: negative -Troponin negative -EKG negative -echo negative. Stress test negative Blood pressure well controlled after starting losartan 25 mg every morning. We will continue this regimen #Lymphedema, chronic -no h/o CHF, pt reports last echo was preformed prior to diagnosis of lymphedema. She stopped taking her home lasix this past week due to increased urinary frequency at work. -echo negative Hold Lasix #Asthma -cont. combivent scheduled -albuterol and symbicort prn #GERD -cont. PPI DVT ppx: lovenox FEN/GI: Code Status: full Dispo: Discharge tomorrow if stress test negative (2) Chest pain: (3) Lymphedema: (4) Asthma: (5) Vertigo: (6) BERNABE (obstructive sleep apnea): Intolerant of CPAP (7) GERD (gastroesophageal reflux disease): Total Time Total Time Spent Total Time Spent (In Minutes): 35 Discharge Plan Discharge Items Patient Disposition: Home - Self-Care Reason For Visit: CHEST PAIN Discharge Diagnosis: Hypertensive urgency Condition on Discharge: Good Activity: Resume your previous activity Non-emergency contact: Primary Care Provider Call non-emergency contact if: you have any medication questions and your symptoms worsen Follow-up/Referrals: Arely Cai PA-C [Primary Care Provider] - Diet: Heart Healthy Addtl Attending Provider Instructions: Advised to follow-up with PCP in 1 week Pending Studies at Discharge: No Stand-Alone Forms: [facility] Medications and DC Order Prescriptions: New losartan 25 mg Tablet 25 mg PO QAM 30 Days Qty: 30 0RF Continued albuterol sulfate 2.5 mg /3 mL (0.083 %) solution for nebulization 2.5 mg continuous nebulization Q4 PRN (Reason: Shortness Of Breath Or Wheezing) omeprazole 20 mg capsule,delayed release(DR/EC) 20 mg PO DAILYBB albuterol sulfate 90 mcg/actuation HFA aerosol inhaler 2 puff INHALATION Q4 PRN (Reason: cough,SOB,wheezing) cyclobenzaprine 10 mg tablet 10 mg PO HS Rx Instructions: ordered tid prn but takes routinely every night fluticasone propionate 50 mcg/actuation spray,suspension 2 spray INTRANASAL DAILY PRN (Reason: Congestion) meclizine 25 mg tablet 25 mg PO TID PRN (Reason: Dizziness) budesonide-formoterol [Symbicort] 160-4.5 mcg/actuation HFA aerosol inhaler 2 puff INHALATION BID PRN (Reason: Shortness Of Breath) Combivent Respimat 20-100 mcg/actuation mist 1 puff INHALATION QID promethazine 25 mg tablet 25 mg PO Q4 PRN (Reason: Nausea) hydrocodone-homatropine 5-1.5 mg/5 mL syrup 5 - 10 ml PO HS PRN (Reason: Cough) montelukast 10 mg Tablet 10 mg PO HS ondansetron HCl 4 mg Tablet 4 mg PO Q8H PRN (Reason: Nausea) Discontinued potassium chloride 10 mEq capsule, extended release 10 meq PO DAILY furosemide 20 mg tablet 20 mg PO DAILY Discharge Orders: Discharge Order (Routine); Ordered 08/24/22 Ordered By: Remedios Myers/Other Patient Handouts: Dobutamine Stress Echo, Warning Signs of a Heart Attack, ED Chest Pain, Uncertain Cause Admission Data Admit Date/Time: 08/23/22 08:03 Attending Provider: Remedios Olson Admit Provider: Cam Olivares Primary Care Provider: Arely Cai Other Providers: Romi Alaniz Coding Level of Care Code 35400 INP/OBS DISCH >30 MIN Diagnoses Hypertensive urgency I16.0 Chest pain R07.9 Chest pain type: unspecified Lymphedema I89.0 Asthma J45.909 Vertigo R42 BERNABE (obstructive sleep apnea) G47.33 GERD (gastroesophageal reflux disease) K21.9
--- NOTE | 2022-08-24 23:34 | Electrocardiogram Report ---
Test Reason : Blood Pressure : / mmHG Vent. Rate : 073 BPM Atrial Rate : 073 BPM P-R Int : 160 ms QRS Dur : 088 ms QT Int : 400 ms P-R-T Axes : 053 -13 021 degrees QTc Int : 440 ms Normal sinus rhythm Possible Anterolateral infarct , age undetermined Abnormal ECG When compared with ECG of 20-AUG-2022 21:24, Borderline criteria for Anterolateral infarct are now Present Confirmed by Lang Mead ([id number]) on 08/24/2022 11:34:09 PM Referred By: REFERRED SELF Confirmed By:Lang Mead
== END 2022-08-24 12:25 | disposition home or self-care (01) | DRG 305 ==
LOC: 2N 21:08 → ED 21:08 → SUATTDRO 08-21 01:29 → 2N 08-21 02:08